=== PATIENT | female | born 1985 | race Two or more races ===

== ENCOUNTER 2019-07-08 18:41 | Emergency (ER) | payer OTHER ==
--- NOTE | 2019-07-08 19:34 | EDM.PDOC ---
ED HPI GENERAL MEDICAL PROBLEM - General Chief Complaint: Neuro Symptoms/Deficits Stated Complaint: [facility] Time Seen by Provider: 07/08/19 19:05 Source of Information: Reports: Family ([id number], ) History Limitations: Reports: Language Barrier (The patient's primary language is Japanese. The patient's theuyie-rk-efi speaks fluent [place]in and acted as an shuttle final inspector for both the patient and her .) - History of Present Illness INITIAL COMMENTS - FREE TEXT/NARRATIVE: Mrs. Rajan is a very pleasant 33-year-old woman with no previously diagnosed medical or surgical issues, who is brought to the ED by her and svdqyxv-vd-rca. Neither the patient nor her speak [place]ene[place]in, however , her gcrzexv-vc-uim speaks fluent [place], and acted as an shuttle final inspector for me. According to the patient's tnliaro-bq-vua, the patient was in her usual state of good health around 4:00 this morning, when her left for work. 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 Around 8:00 to 9:00 this morning, she told a woman who was dropping off her child that she was not feeling well, then fainted. EMS was summoned. She told EMS that she was experiencing chest pain, dyspnea, and pain to the back of her neck. She was evaluated by EMS, but refused transport. The patient's came home from work. The patient took a nap. When she woke up, she was given some soup to eat , then fainted again. EMS was summoned a second time, this time bringing her to the ED. The patient's beractp-vt-uip tells me that the patient has had virtually identical episodes numerous times in the past, primarily 2 to 3 years ago. She was seen at an emergency department in [place], and apparently had an extensive work-up that included scans and an LP, all of which were negative. He tells me that no diagnosis was given, and no prescriptions were written. The patient was also seen at a clinic, again with no diagnosis or treatment plan. The patient has been relatively symptom-free for the past couple of years. The main difference between this episode and previous episodes is that previous episodes occurred only once within a day, with this is the second time that an episode occurred in the same day. The patient's mvumkkj-as-tdy mentioned that the family traveled to [place], then to [place], then back here to [place] about 3 to 4 weeks ago. He also mentioned that the patient had a miscarriage about 4 to 5 years ago. She is G5 , P4. The patient has had a dry cough for the past 3 days, but no recent fever, chills , dyspnea, chest pain, palpitations, nausea, vomiting, constipation, diarrhea, abdominal pain, urinary symptoms, recent weight gain or weight loss, recent bloody bowel movements or black bowel movements, recent joint aches, headaches, or rashes. Here in the ED, the patient is found to be slightly tachycardic, but is otherwise hemodynamically stable, with an oxygen saturation of 100% on room air. The patient does not have a PCP. She has not received an influenza vaccine this season. Chest Pain Score (Numeric/FACES): 6 - Related Data Allergies Allergy/AdvReac Type Severity Reaction Status Date / Time No Known Allergies Allergy Verified 07/08/19 18:51 Home Meds: Home Meds . 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 ED EXAM, NEURO - Physical Exam Exam: See Below Exam Limited By: No Limitations General Appearance: WD/WN, Lethargic, Mild Distress (Tearful) Eye Exam: Bilateral Eye: EOMI, Normal Inspection, PERRL Ears: Normal External Exam, Normal Canal, Hearing Grossly Normal, Normal TMs Nose: Normal Inspection, Normal Mucosa, No Blood Throat/Mouth: Normal Inspection, Normal Lips, Normal Teeth, Normal Gums, Normal Oropharynx, Normal Voice, No Airway Compromise Head Exam: Atraumatic, Normocephalic Neck: Normal Inspection, Supple, Non-Tender, Full Range of Motion. No: Lymphadenopathy (L), Lymphadenopathy (R) Respiratory/Chest: No Respiratory Distress, Lungs Clear, Normal Breath Sounds, No Accessory Muscle Use Cardiovascular: Normal Peripheral Pulses, No Edema, No Gallop, No JVD, No Murmur , No Rub, Tachycardia (regular) GI/Abdominal: Normal Bowel Sounds, Soft, Non-Tender, No Organomegaly, No Distention, No Abnormal Bruit, No Mass (Female) Exam: Deferred Rectal (Female) Exam: Deferred Neurological: Normal Dorsiflexion, CN II-XII Intact, Normal Plantar Flexion, No Motor/Sensory Deficits, Other (Poorly cooperative - required verbal insistance in order to accomplish) Back Exam: Normal Inspection, Full Range of Motion, NT Extremities: Normal Inspection, Normal Range of Motion, No Pedal Edema, Normal Capillary Refill Psychiatric: Anxious, Tearful Skin Exam: Warm, Dry, Intact, Normal Color, No Rash EKG INTERPRETATION EKG Date: 07/08/19 Time: 19:35 Rhythm: NSR Rate (Beats/Min): 85 [place]: Normal P-Wave: Present QRS: Normal ST-T: Normal QT: Normal Comparison: NA - No Prior EKG Course - Vital Signs Last Recorded V/S: Last Vital Signs Temp 36.5 C 07/08/19 18:45 Pulse 102 H 07/08/19 18:45 Resp 20 07/08/19 18:45 BP 136/83 07/08/19 18:45 Pulse Ox 100 07/08/19 18:45 Orthostatic Blood Pressure [ 107/83 Standing] Orthostatic Blood Pressure [ 114/71 Supine] - Orders/Labs/Meds Orders: Active Orders 24 hr Category Date Time Status EKG Documentation Completion [RC] STAT Care 07/08/19 19:31 Active Orthostatic Vital Signs [RC] STAT Care 07/08/19 19:31 Active Chest 2V [CR] Stat Exams 07/08/19 19:31 Taken Labs: Laboratory Tests 07/08/19 07/08/19 07/08/19 Range/Units 19:44 19:53 19:53 WBC 7.80 (3.98-10.04) K/mm3 RBC 4.42 (3.98-5.22) M/mm3 Hgb 13.4 (11.2-15.7) gm/dl Hct 39.3 (34.1-44.9) % MCV 88.9 (79.4-94.8) fl MCH 30.3 (25.6-32.2) pg MCHC 34.1 (32.2-35.5) g/dl RDW Std Deviation 44.3 (36.4-46.3) fL Plt Count 296 (182-369) K/mm3 MPV 8.4 L (9.4-12.3) fl Neutrophils % (Manual) 79 H (40-60) % Band Neutrophils % 2 (0-10) % Lymphocytes % (Manual) 15 L (20-40) % Atypical Lymphs % 0 % Monocytes % (Manual) 3 (2-10) % Eosinophils % (Manual) 1 (0.7-5.8) % Basophils % (Manual) 0 L (0.1-1.2) Platelet Estimate Adequate RBC Morph Comment Normal D-Dimer, Quantitative 0.59 H (0.19-0.50) mg/L Puncture Site Lt radial ABG pH 7.41 (7.35-7.45) ABG pCO2 35.0 (35.0-45.0) mmHg ABG pO2 63.0 L (80.0-100.0) mmHg ABG HCO3 21.8 L (22.0-26.0) meq/L ABG O2 Saturation 94.7 L (96.0-97.0) % ABG Base Excess -1.8 (-2-2.0) Canelo Test Positive A-a Gradient 43 mmHg FiO2 0.00 L (21.00-100.00) % Sodium (136-145) mEq/L Potassium (3.5-5.1) mEq/L Chloride (98-107) mEq/L Carbon Dioxide (21-32) mEq/L Anion Gap (5-15) BUN (7-18) mg/dL Creatinine (0.55-1.02) mg/dL Est Cr Clr Drug Dosing mL/min Estimated GFR (MDRD) (>60) mL/min BUN/Creatinine Ratio (14-18) Glucose (74-106) mg/dL Calcium (8.5-10.1) mg/dL Magnesium (1.8-2.4) mg/dl Total Bilirubin (0.2-1.0) mg/dL AST (15-37) U/L ALT (14-59) U/L Alkaline Phosphatase (46-116) U/L Troponin I (0.00-0.056) ng/mL NT-Pro-B Natriuret Pep (0-125) pg/mL Total Protein (6.4-8.2) g/dl Albumin (3.4-5.0) g/dl Globulin gm/dL Albumin/Globulin Ratio (1-2) TSH 3rd Generation (0.358-3.74) uIU/mL Urine Color (Yellow) Urine Appearance (Clear) Urine pH (5.0-8.0) Ur Specific [place] (1.005-1.030) Urine Protein (Negative) Urine Glucose (UA) (Negative) Urine Ketones (Negative) Urine Occult Blood (Negative) Urine Nitrite (Negative) Urine Bilirubin (Negative) Urine Urobilinogen (0.2-1.0) Ur Leukocyte Esterase (Negative) Urine RBC (0-5) /hpf Urine WBC (0-5) /hpf Ur Squamous Epith Cells (0-5) /hpf Urine Bacteria (FEW) /hpf Urine Mucus (FEW) /hpf Urine HCG, Qual (NEGATIVE) 07/08/19 07/08/19 07/08/19 Range/Units 19:53 19:53 20:34 WBC (3.98-10.04) K/mm3 RBC (3.98-5.22) M/mm3 Hgb (11.2-15.7) gm/dl Hct (34.1-44.9) % MCV (79.4-94.8) fl MCH (25.6-32.2) pg MCHC (32.2-35.5) g/dl RDW Std Deviation (36.4-46.3) fL Plt Count (182-369) K/mm3 MPV (9.4-12.3) fl Neutrophils % (Manual) (40-60) % Band Neutrophils % (0-10) % Lymphocytes % (Manual) (20-40) % Atypical Lymphs % % Monocytes % (Manual) (2-10) % Eosinophils % (Manual) (0.7-5.8) % Basophils % (Manual) (0.1-1.2) Platelet Estimate RBC Morph Comment D-Dimer, Quantitative (0.19-0.50) mg/L Puncture Site ABG pH (7.35-7.45) ABG pCO2 (35.0-45.0) mmHg ABG pO2 (80.0-100.0) mmHg ABG HCO3 (22.0-26.0) meq/L ABG O2 Saturation (96.0-97.0) % ABG Base Excess (-2-2.0) Canelo Test A-a Gradient mmHg FiO2 (21.00-100.00) % Sodium 142 (136-145) mEq/L Potassium 3.7 (3.5-5.1) mEq/L Chloride 107 (98-107) mEq/L Carbon Dioxide 25 (21-32) mEq/L Anion Gap 13.7 (5-15) BUN 12 (7-18) mg/dL Creatinine 0.8 (0.55-1.02) mg/dL Est Cr Clr Drug Dosing 94.51 mL/min Estimated GFR (MDRD) > 60 (>60) mL/min BUN/Creatinine Ratio 15.0 (14-18) Glucose 105 (74-106) mg/dL Calcium 8.6 (8.5-10.1) mg/dL Magnesium 2.1 (1.8-2.4) mg/dl Total Bilirubin 0.2 (0.2-1.0) mg/dL AST 18 (15-37) U/L ALT 40 (14-59) U/L Alkaline Phosphatase 64 (46-116) U/L Troponin I < 0.017 (0.00-0.056) ng/mL NT-Pro-B Natriuret Pep 131 H (0-125) pg/mL Total Protein 7.5 (6.4-8.2) g/dl Albumin 3.4 (3.4-5.0) g/dl Globulin 4.1 gm/dL Albumin/Globulin Ratio 0.8 L (1-2) TSH 3rd Generation 2.151 (0.358-3.74) uIU/mL Urine Color Yellow (Yellow) Urine Appearance Slt cloudy H (Clear) Urine pH 7.0 (5.0-8.0) Ur Specific [place] > or = 1.030 (1.005-1.030) Urine Protein Negative (Negative) Urine Glucose (UA) Negative (Negative) Urine Ketones Negative (Negative) Urine Occult Blood Trace-intact H (Negative) Urine Nitrite Negative (Negative) Urine Bilirubin Negative (Negative) Urine Urobilinogen 0.2 (0.2-1.0) Ur Leukocyte Esterase Negative (Negative) Urine RBC 5-10 H (0-5) /hpf Urine WBC 0-5 (0-5) /hpf Ur Squamous Epith Cells 5-10 H (0-5) /hpf Urine Bacteria Many H (FEW) /hpf Urine Mucus Not seen (FEW) /hpf Urine HCG, Qual (NEGATIVE) 07/08/19 Range/Units 20:35 WBC (3.98-10.04) K/mm3 RBC (3.98-5.22) M/mm3 Hgb (11.2-15.7) gm/dl Hct (34.1-44.9) % MCV (79.4-94.8) fl MCH (25.6-32.2) pg MCHC (32.2-35.5) g/dl RDW Std Deviation (36.4-46.3) fL Plt Count (182-369) K/mm3 MPV (9.4-12.3) fl Neutrophils % (Manual) (40-60) % Band Neutrophils % (0-10) % Lymphocytes % (Manual) (20-40) % Atypical Lymphs % % Monocytes % (Manual) (2-10) % Eosinophils % (Manual) (0.7-5.8) % Basophils % (Manual) (0.1-1.2) Platelet Estimate RBC Morph Comment D-Dimer, Quantitative (0.19-0.50) mg/L Puncture Site ABG pH (7.35-7.45) ABG pCO2 (35.0-45.0) mmHg ABG pO2 (80.0-100.0) mmHg ABG HCO3 (22.0-26.0) meq/L ABG O2 Saturation (96.0-97.0) % ABG Base Excess (-2-2.0) Canelo Test A-a Gradient mmHg FiO2 (21.00-100.00) % Sodium (136-145) mEq/L Potassium (3.5-5.1) mEq/L Chloride (98-107) mEq/L Carbon Dioxide (21-32) mEq/L Anion Gap (5-15) BUN (7-18) mg/dL Creatinine (0.55-1.02) mg/dL Est Cr Clr Drug Dosing mL/min Estimated GFR (MDRD) (>60) mL/min BUN/Creatinine Ratio (14-18) Glucose (74-106) mg/dL Calcium (8.5-10.1) mg/dL Magnesium (1.8-2.4) mg/dl Total Bilirubin (0.2-1.0) mg/dL AST (15-37) U/L ALT (14-59) U/L Alkaline Phosphatase (46-116) U/L Troponin I (0.00-0.056) ng/mL NT-Pro-B Natriuret Pep (0-125) pg/mL Total Protein (6.4-8.2) g/dl Albumin (3.4-5.0) g/dl Globulin gm/dL Albumin/Globulin Ratio (1-2) TSH 3rd Generation (0.358-3.74) uIU/mL Urine Color (Yellow) Urine Appearance (Clear) Urine pH (5.0-8.0) Ur Specific [place] (1.005-1.030) Urine Protein (Negative) Urine Glucose (UA) (Negative) Urine Ketones (Negative) Urine Occult Blood (Negative) Urine Nitrite (Negative) Urine Bilirubin (Negative) Urine Urobilinogen (0.2-1.0) Ur Leukocyte Esterase (Negative) Urine RBC (0-5) /hpf Urine WBC (0-5) /hpf Ur Squamous Epith Cells (0-5) /hpf Urine Bacteria (FEW) /hpf Urine Mucus (FEW) /hpf Urine HCG, Qual Negative (NEGATIVE) Meds: Medications Discontinued Medications Generic Name Dose Route Start Last Admin Trade Name Freq PRN Reason Stop Dose Admin Lorazepam 1 mg 07/08/19 19:59 07/08/19 20:04 Ativan IVPUSH 07/08/19 20:00 1 mg ONETIME STA Administration - Re-Assessments/Exams Free Text/Narrative Re-Assessment/Exam: 07/08/19 19:34 The patient's oxygen saturation is 100%, and she appears to be quite anxious. I believe that she is suffering from a panic attack, and, not understanding what is happening to her, is behaving the way that she is. This is buttressed by the fact that this exact same scenario has occurred to the patient numerous times in the past, with the most recent episodes being about 2 years ago. Indeed, the patient's xrhgrco-fk-anw states that the only difference about today's episode is that it occurred twice in one day. I have ordered a hyperventilation workup that includes, to start, an ABG to confirm that she is hyperventilating, to be followed by a workup to rule out known causes of hyperventilation. While I cannot test for anxiety directly, if her workup for known causes of hyperventilation is negative, then, by a process of elimination, her hyperventilation is due to anxiety. In addition to the usual workup, I have ordered a CT scan of the head, even though her neurologic examination is, for the most part normal. When pressed, the patient did cooperate with the neurologic exam, and everything was symmetric , however, she was less than fully cooperative. According to the patient's inmiarj-np-fox, a prior workup was negative, and I have every confidence that today's CT of the head will be negative, as well, but we do not have a prior CT on record. Today's CT will establish a baseline. After the ABG has been acquired, I will order some IV Ativan, to see if that improves her situation. 07/08/19 19:56 As anticipated, the patient's ABG does in fact represent a chronic (compensated ) primary respiratory alkalosis. I will order some IV Ativan. 07/08/19 20:33 CT of the head without contrast is read by Dr. Osullivan as: 1. Nothing acute is appreciated on noncontrast head CT exam. 2-view chest radiograph reviewed. Poor inspiratory effort for both the AP and lateral views. The cardiac silhouette is within normal limits. No pulmonary vascular congestion. No pleural effusions. No focal infiltrate. No pneumothorax. Formal read per the Radiologist pending. Notified by Jennifer STARK that the patient refused the quick catheter for a urine sample, and is now up and ambulatory. She went to the bathroom on her own. 07/08/19 20:44 The patient is not orthostatic. Her heart rate did rise by 29 bpm between supine and standing, however, therefore I will have Jennifer STARK give her some fluids to drink. 07/08/19 21:09 The patient's CBC is unremarkable. Her CMP is unremarkable. Her magnesium level is within normal limits at 2.1. Her troponin is undetectably low. Her TSH is within normal limits at 2.151. Her D-dimer is slightly elevated at 0.59. Her BNP is slightly elevated at 131. Her urinalysis shows some contamination, but is not consistent with a UTI. Her urine test is negative. 07/08/19 22:42 Test results discussed with the patient, her , and [id number]. As above, today's workup confirmed that the patient is hyperventilating, which is usually caused by anxiety, although can be caused by a variety of medical conditions including a head injury with increased intercranial pressure, metabolic acidosis, DKA, uremia, hypocalcemia, hypoglycemia, hyperthyroidism, liver failure, , severe anemia, sepsis, acute coronary event, pneumothorax, pneumonia, dysrhythmia, PE, and CHF, however, in this case, these have all been ruled out. By a process of elimination, the patient is most likely suffering from anxiety/panic attack. I explained that she will require long-term medical treatment, that we do not prescribe from the emergency department. I will refer her to the clinic for evaluation and treatment. Departure - Departure Time of Disposition: 22:44 Disposition: Home, Self-Care 01 Condition: Good Clinical Impression: Anxiety, Panic attack, Hyperventilation syndrome - Discharge Information *PRESCRIPTION DRUG MONITORING PROGRAM REVIEWED*: Not Applicable *COPY OF PRESCRIPTION DRUG MONITORING REPORT IN PATIENT CARLOS EDUARDO: Not Applicable Instructions: Hyperventilation, Panic Attack, [id number] Referrals: Naomy Patiño PA-C [Physician Insurance Territory Manager] - Forms: ED Department Discharge Additional Instructions: Dunia was seen in the emergency room after fainting twice and complaining of chest pain, shortness of breath, and pain in the back of her neck. Workup in the ER included blood work, an arterial blood gas, positional blood pressure checks, a urinalysis, a urine test, a chest XRay, a CT scan of her head, and an ECG. Her ABG confirmed that she was hyperventilating. Hyperventilation is usually caused by anxiety and panic attack, but can be caused by a variety of medical conditions, including a head injury with increased intercranial pressure, metabolic acidosis, DKA, uremia, hypocalcemia, hypoglycemia, hyperthyroidism, liver failure, , severe anemia, sepsis, acute coronary event, pneumothorax, pneumonia, dysrhythmia, PE, and CHF. In this case, all of those conditions have been ruled out. By a process of elimination, Dunia's hyperventilation appears to be due to anxiety/panic attack. We strongly recommend that Dunia follow-up with JOSÉ MANUEL Del Angel, or one of the other providers in the clinic, to discuss treatment options for anxiety. If any other problems, please do not hesitate to return Dunia to the ER. Sepsis Event Note - Evaluation Sepsis Screening Result: No Definite Risk - Focused Exam Date Exam was Performed: 07/09/19 Time Exam was Performed: 17:36 - My Orders Last 24 Hours: My Active Orders 07/08/19 19:31 EKG Documentation Completion [RC] STAT Orthostatic Vital Signs [RC] STAT Chest 2V [CR] Stat - Assessment/Plan Last 24 Hours: My Active Orders 07/08/19 19:31 EKG Documentation Completion [RC] STAT Orthostatic Vital Signs [RC] STAT Chest 2V [CR] Stat
[2019-07-08] MEDS ORDERED: LORazepam 2 MG/ML SDV IVPUSH STA (19:59)
--- NOTE | 2019-07-08 20:30 | CT ---
Head CT Technique: Multiple axial sections through the brain were obtained. Intravenous contrast was utilized. Comparison: No prior intracranial imaging is available. Findings: Ventricles along with basal cisterns and sulci over the convexities are within normal limits for the patient's age. No abnormal parenchymal densities are seen. No evidence of intracranial hemorrhage. No midline shift or mass effect is seen. Bone window settings were reviewed which shows no acute calvarial abnormality. Visualized mastoid sinuses and paranasal sinuses show nothing acute. Impression: 1. Nothing acute is appreciated on noncontrast head CT exam. Diagnostic code #1 This report was dictated in [place] Standard Time
--- NOTE | 2019-07-11 17:48 | CR ---
Chest: Two views of the chest were obtained. Comparison: No prior chest imaging. Poor inspiratory study is noted. Within this limitation, lungs are felt to be clear. Heart size and mediastinum are normal. Bony structures are unremarkable. Impression: 1. Poor inspiratory chest x-ray. 2. Nothing acute is otherwise appreciated on two-view chest x-ray. Diagnostic code #2 This report was dictated in [place] Standard Time
== END 2019-07-08 23:07 | disposition home or self-care (01) ==
LOC: JD.ED 18:41
DX: F41.0 Panic disorder [episodic paroxysmal anxiety] (principal); F45.8 Other somatoform disorders
CPT/HCPCS: 36415; 36600; 70450; 71046; 80053; 81001; 81025; 82803; 83735; 83880; 84443; 84484; 85007; 85027; 85379; 93005; 96374; 99285; J2060; 93010; 99284

== ENCOUNTER 2020-07-20 11:20 | Emergency (ER) | payer BC ==
[2020-07-20] MEDS ORDERED: Lidocaine 2% Jelly 10 ML Urojet MUCMEM ONE (11:42)
--- NOTE | 2020-07-20 11:49 | EDM.PDOC ---
ED HPI GENERAL MEDICAL PROBLEM - General Chief Complaint: Abdominal Pain Stated Complaint: CONSTIPATION POST SURGERY Time Seen by Provider: 07/20/20 11:42 Source of Information: Reports: Patient History Limitations: Reports: No Limitations, Language Barrier (Patient only speaks [place]an and apparently has very poor understanding of [place] language.) - History of Present Illness INITIAL COMMENTS - FREE TEXT/NARRATIVE: 34-year-old female [place] descent presents to the ED not able to understand [place] language. Chief complaint is rectal pain with some bleeding this morning but she claims no bowel movement for the last 2 weeks since she had left bunionectomy surgery performed. She has finished a prescription of 40 tablets of hydrocodone 5/325 mg strength for pain relief in the left foot. She has not taken any stool softeners. Complains of diffuse lower abdominal pain and rectal pressure discomfort. Apparently has pressure in the rectal vault and feeling of need to go but is unable to do so due to pain. No history of nausea or vomiting. A good history could not be obtained from the patient since she cannot speak [place]inean. There is a male in the room with her of [place] descent but does not seem to offer any interpretation of her symptoms. Patient is diaphoretic on examination and obviously in discomfort. Onset: Gradual Onset Date: 07/06/20 (He has not had a bowel mom for 2 weeks since she had her left bunionectomy carried out.) Duration: Week(s): (2 weeks), Getting Worse, Other (Rectal pressure discomfort) Location: Reports: Abdomen (Diffuse periumbilical abdominal pain) Quality: Reports: Other ( left lower quadrant abdominal pain and rectal pressure discomfort) Severity: Severe (no rectal bleeding) Improves with: Reports: None Worsens with: Reports: None Context: Reports: Other (No bowel movement reportedly for the last 2 weeks secondary to severe constipation updated by narcotic use post left foot bunionectomy.). 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: Reports: Other (see below) Rectal Pain Score (Numeric/FACES): 10 - Related Data Allergies Allergy/AdvReac Type Severity Reaction Status Date / Time No Known Allergies Allergy Verified 07/08/19 18:51 Home Meds: Home Meds Amoxicillin 500 mg PO BID 07/20/20 [History] Hydrocodone/Acetaminophen [Hydrocodone-Acetamin 10-325 mg] 1 tab PO Q4H PRN 07/20/20 [History] polyethylene glycoL 3350 [MiraLAX] 17 gm PO DAILY #1 container 07/20/20 [Rx] Past Medical History - Past Health History Medical/Surgical History: Denies Medical/Surgical History - Past Surgical History Musculoskeletal Surgical History: Reports: Other (See Below) (Patient apparently underwent a left-sided great toe bunionectomy 2 weeks ago. 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 Denies: Fever, Chills, Malaise HEENT: Reports: No Symptoms Respiratory: Reports: No Symptoms Cardiovascular: Reports: No Symptoms Endocrine: Reports: No Symptoms GI/Abdominal: Reports: Abdominal Pain (Apparently diffuse lower abdominal pain particular left lower quadrant), Constipation ( crampy in nature. No bowel movement reported for 2 weeks since she had bunionectomy surgery left foot.), Decreased Appetite, Other (Rectal pressure pain discomfort with some bleeding.) : Reports: No Symptoms, Other (Apparently still empty able to empty her bladder normally.) Musculoskeletal: Reports: Other (Recent bunionectomy surgery left great toe.) Skin: Reports: No Symptoms Neurological: Reports: No Symptoms Psychiatric: Reports: No Symptoms Hematologic/Lymphatic: Reports: No Symptoms Immunologic: Reports: No Symptoms ED EXAM, GI/ABD - Physical Exam Exam: See Below Exam Limited By: Language Barrier (Plunkett is primarily of [place] descent and apparently has very poor understanding of [place] language.) General Appearance: Alert, WD/WN, Moderate Distress (Is to be in significant discomfort. She is diaphoretic), Other ( on palpation of the abdomen. Vital signs show temperature of 36.7 heart rate at the bedside is 112 and sinus.) Eyes: Bilateral: Normal Appearance Cardiovascular: Normal Peripheral Pulses, Regular Rate, Rhythm, No Gallop, No Murmur, No Rub GI/Abdominal Exam: Soft, No Organomegaly (Left lower quadrant of the abdomen with firm stool palpable in the splenic flexure.), Tender, Abnormal Bowel Sounds (Bowel sounds heard in all four quadrants of the abdomen.) Back Exam: Normal Inspection, Full Range of Motion. No: CVA Tenderness (L), CVA Tenderness (R) Extremities: Normal Inspection, Normal Range of Motion, Non-Tender, No Pedal Edema, Normal Capillary Refill Neurological: Alert, Oriented, CN II-XII Intact, Normal Cognition Psychiatric: Anxious, Other Skin Exam: Diaphoretic (Cool and diaphoretic on palpation of the abdominal wall.) Course - Vital Signs Last Recorded V/S: Last Vital Signs Temp 36.7 C 07/20/20 11:35 Pulse 112 H 07/20/20 11:35 Resp 20 07/20/20 11:35 BP 105/78 07/20/20 11:35 Pulse Ox 97 07/20/20 11:35 - Orders/Labs/Meds Meds: Medications Discontinued Medications Generic Name Dose Route Start Last Admin Trade Name Patricioq PRN Reason Stop Dose Admin Hydromorphone HCl 0.5 mg 07/20/20 12:31 07/20/20 12:43 Dilaudid IVPUSH 07/20/20 12:32 0.5 mg ONETIME ONE Administration Dextrose/Sodium Chloride 1,000 mls @ 150 mls/hr 07/20/20 12:30 07/20/20 12:42 Dextrose 5%-Normal Saline IV 150 mls/hr ASDIRECTED ADILSON Administration Lidocaine HCl 10 ml 07/20/20 11:42 07/20/20 12:21 Xylocaine 2% Jelly MUCMEM 07/20/20 11:43 10 ml ONETIME ONE Administration Lorazepam 1 mg 07/20/20 12:31 07/20/20 12:43 Ativan IV 07/20/20 12:32 1 mg ONETIME ONE Administration Magnesium Citrate 240 ml 07/20/20 14:53 07/20/20 15:01 Citrate Of Magnesia PO 07/20/20 14:54 240 ml ONETIME ONE Administration Metoclopramide HCl 5 mg 07/20/20 12:31 07/20/20 12:43 Reglan IVPUSH 07/20/20 12:32 5 mg ONETIME ONE Administration - Radiology Interpretation Free Text/Narrative:: 34-year-old female with primary [place]inean-speaking descent presents to the ED reportedly with no bowel movement for the last 2 weeks. 2 weeks ago she underwent a left first metatarsal bunionectomy in [place]. She was prescribed [place] 5/325 mg tablets x40 tabs. Have been completely ingested over the last 2 weeks. Patient is apparently is experiencing a great deal of perianal pressure discomfort with some bleeding noted today. Plan she will have a KUB performed to identify how extensive the constipation issue is. Plan will be to have lidocaine gel 2% applied to the perianal tissues. She will likely need a Fleet enema with mineral oil first to try and remove some of the stool plug and then a soapsuds enema following this. - Re-Assessments/Exams Free Text/Narrative Re-Assessment/Exam: 07/20/20 12:24 KUB reveals extensive constipation with the entire colon being filled with stool. Hard nodules of stool are evident throughout the descending colon and rectal vault. Plan will be to anesthetize the anus and distal rectum with lidocaine gel using Urojet. She will then receive a fleets enema with mineral oil to soften the hard stool in the rectal vault. We will see what kind of results to get with this but the plan would be to follow this up with a soapsuds enema with hydrogen peroxide to provide further relief of hard stool from the descending and sigmoid colon. Patient then will require magnesium citrate orally to provide bowel cleanse. 07/20/20 12:32 nurses report first attempts at trying to give her the Fleet enema failed as the patient seemed to have too much pain and they felt they were not able to perform the procedure. One of the older nurses is going to give it a try at this point time. She did have a meal at about 0900 hrs. this morning which was Cuban type food. Plan IV will be D5 normal saline at 150 mils per hour. She will be given Ativan 1 mg IV with Dilaudid 0.5 mg IV and Reglan 5 mg IV to help provide pain relief and some degree of sedation. Failing this she may require disimpaction in the operating room. 07/20/20 13:16 for some sedation and pain control patient was able to accept the Fleet enema with mineral oil. We will see what results we get with this treatment. 07/20/20 14:54 Nurse reports that patient had a fair amount of stool after soapsuds enema was given although she was only able to retain the soapsuds enema for period of about 10 minutes. She may well go again when she gets home. The plan will be to give her magnesium citrate or Citroma 8 ounces by mouth now mixed with 6 ounces of juice of choice to provide further bowel cleanse later this afternoon. I am going to advise MiraLAX powder 17 g daily for the next week to make sure that bowel function returns to normal. Motrin 600 mg every 6 hours will be used for left foot pain at this time. Departure - Departure Time of Disposition: 15:35 Disposition: Home, Self-Care 01 Condition: Fair Clinical Impression: Constipation by delayed colonic transit Abdominal pain Qualifiers: Abdominal location: lower abdomen, unspecified Qualified Code(s): R10.30 - Lower abdominal pain, unspecified - Discharge Information *PRESCRIPTION DRUG MONITORING PROGRAM REVIEWED*: Not Applicable *COPY OF PRESCRIPTION DRUG MONITORING REPORT IN PATIENT CARLOS EDUARDO: Not Applicable Prescriptions: polyethylene glycoL 3350 [MiraLAX] 17 gm PO DAILY #1 container Instructions: Abdominal Pain, Adult, [id number] Referrals: Yoselin Botello PA-C [Primary Care Provider] - Forms: ED Department Discharge Additional Instructions: Evaluation in the emergency room today in regards to no bowel movement for 14 days since using narcotic pain medication for control of left foot pain post bunionectomy repair. Narcotic pain medication is famous for slowing down bowel function and causing constipation. X-ray of the abdomen today revealed the entire 4-1/2 feet of colon to be stool-filled compatible with severe constipation. You were therefore treated with topical lidocaine gel to the anus and rectal vault to provide some relief of pain. A Fleet enema with mineral oil was given initially with some degree of difficulty and mild disimpaction was performed by nursing staff. You subsequently then had a soapsuds enema given which you were able to retain for only about 10 minutes. Our hope was to retain it for about 20 to 25 minutes. This provided further bowel movement which was somewhat semisoft which means we got rid of the stool plug that was causing most of the pain in terms of passing stool. You will need to take magnesium citrate which was given in the emergency room 8 ounces mixed with 6 ounces of juice that will help the stool that is on the right side of the bowel move across to the left side and out of your body. This will usually take 1 to 3 hours to start to work and the bowels will often move 3 or 4 times. Suggest starting MiraLAX powder which has no taste, take 17 g or 1 scoop daily for the next week to 10 days to ensure that normal bowel function occurs on a daily basis. Suggest Motrin 600 mg every 6 hours to relieve pain in your left foot postop bunionectomy surgery. Follow-up with personal care provider if any further problems occur. Of note you may eat and drink per normal. Sepsis Event Note (ED) - Evaluation Sepsis Screening Result: No Definite Risk
[2020-07-20] MEDS ORDERED: Dextrose 5%-0.9% NaCl 1,000 ML IV SCH (12:30)
[2020-07-20] MEDS ORDERED: Metoclopramide 10 MG/2 ML SDV IVPUSH ONE (12:31)
[2020-07-20] MEDS ORDERED: LORazepam 2 MG/ML SDV IV ONE (12:31)
[2020-07-20] MEDS ORDERED: HYDROmorphone 0.5 MG/0.5 ML Syringe IVPUSH ONE (12:31)
--- NOTE | 2020-07-20 12:36 | CR ---
Abdomen: Supine view of the abdomen was obtained. Comparison: No prior abdominal imaging is available. Increased stool is noted throughout the colon. Bowel gas pattern is otherwise unremarkable. Bony structures appear within normal limits for the patient's age. No abnormal calcifications are seen. Impression: 1. Increased stool throughout the colon. Diagnostic code #2
[2020-07-20] MEDS ORDERED: Magnesium Citrate Solution 296 ML Bottle PO ONE (14:53)
== END 2020-07-20 15:40 | disposition home or self-care (01) ==
LOC: JD.ED 11:20 → SUPCPDRO 11:20 → JD.ED 15:40
DX: K59.01 Slow transit constipation (principal)
CPT/HCPCS: 74018; 96374; 96375; 99283; A9270; J1170; J2060; J2765; J7042; 99284